=== PATIENT | female | born 1965 | race Caucasian/White ===

== ENCOUNTER → 2017-02-14 | Outpatient (CLI) | payer MEDICARE, BC ==
--- NOTE | 2017-02-14 17:50 | RADRPT ---
PROCEDURE: XR Lumbar Spine. CLINICAL INDICATION: Back pain. TECHNIQUE: Three views. AP, lateral and cone-down lateral view of the lumbar spine were obtained. COMPARISON: No prior studies are available for comparison. FINDINGS: There has been prior extensive surgery with pedicle screws and connecting rods at multiple levels. There is an intervertebral cage at the L1 level. There is fracture and hardware noted inferiorly ove rlying the sacrum. There is no acute fracture. There is no lytic or blastic lesion. Calcifications are present in the right upper quadrant which may indicate gallstones. Surgical clip s are also noted at this site which may indicate cholecystectomy. There is a catheter or wire overlying the right side of the pelvis. IMPRESSION: 1. Postoperative changes as described above. 2. Probable gallstones in the right upper quadrant of the abdomen. Surgical clips are also noted i n the right upper quadrant of the abdomen. Correlation with ultrasound or CT scan should be consider ed. RPTAT: QQ .Pedro Alvarez MD, MD Date Time Electronically viewed and signed by .Pedro Alvarez MD, on 02/14/2017 17:50 .R/
== END | disposition home or self-care (01) ==
LOC: RAD 13:08
PROVIDERS: ATTEND Surgery
DX: M54.9 Dorsalgia, unspecified (principal); Z98.1 Arthrodesis status; R93.8 Abnormal findings on diagnostic imaging of other specified body structures
CPT/HCPCS: 72100